=== PATIENT | female | born 1995 | race Caucasian/White ===

== ENCOUNTER 2019-10-27 04:48 | Emergency (ER) | payer MEDICAID ==
[~2019-10-27] VITALS: Ht 167.6 cm; Wt 113.4 kg
[2019-10-27] MEDS ORDERED: ACETAMINOPHEN325 M1 PO (05:02)
[2019-10-27] MEDS ORDERED: IBUPROFEN600 MG PO (05:02)
[2019-10-27] MEDS ORDERED: KEFLEX500 MG PO (06:53)
== END 2019-10-27 07:18 | disposition home or self-care (01) ==
LOC: ED 04:48
DX: O86.20 Urinary tract infection following delivery, unspecified (principal); O99.335 Smoking (tobacco) complicating the puerperium; F17.200 Nicotine dependence, unspecified, uncomplicated; Z88.0 Allergy status to penicillin
CPT/HCPCS: 76705; 80053; 81001; 83690; 85025; 99284-25; A9270

== ENCOUNTER 2021-10-06 16:14 | Emergency (ER) | payer OTHER ==
[~2021-10-06] VITALS: Ht 167.6 cm; Wt 120.5 kg
[~2021-10-06 16:14] MED LIST: ACETAMINOPHEN325 M1 PO; IBUPROFEN600 MG PO; KEFLEX500 MG PO
[2021-10-06] MEDS ORDERED: VITAMIN D310 MCG/11 PO (16:40)
[2021-10-06] MEDS ORDERED: CLEOCIN HCL300 MG PO (16:40)
--- OUTSIDE RECORDS SUMMARY | 2021-10-06 17:42 | XMS ---
PreManage Notification: OLAF THOMAS Security Nursing Program Manager Events No recent Security Events currently on file CRITERIA MET - 6 ED Visits in 6 Months - [facility] - 2 Visits in 30 Days CARE PROVIDERS MARY VEGA Advanced Practice Phys Asst Current PHONE: Unknown PCP: Ijeoma Liao Advanced Practice Phys Asst Current PHONE: Unknown ELANA HOGAN [facility] Current PHONE: Unknown Wilfredo has no Care Guidelines for this patient. E.D. VISIT COUNT (12 MO.) 4 [place] Byrne Maryjo 4 [facility]. 1 BRITTANY Bricelyn Deysi TOTAL 9 NOTE: Visits indicate total known visits. ED/UCC VISIT TRACKING (12 MO.) 10/06/2021 16:16 [facility] [place] TYPE: Emergency COMPLAINT: - CHEST HURTS WHEN BREATHES, RUNNY NOSE, COUGH 09/19/2021 02:22 [facility] [place] TYPE: Emergency DIAGNOSES: - Otalgia - Periapical abscess without sinus - Otalgia, right ear - Dental Pain 06/26/2021 14:35 [facility] [place] TYPE: Emergency DIAGNOSES: - Unspecified abdominal pain - Other specified related conditions, unspecified trimester - Abdominal Pain () [facility] COMPLAINT: - [facility] COMPLAINT: - N/V/D CP SOB 05/20/2021 04:35 [facility] [place] TYPE: Emergency DIAGNOSES: - Sore Throat - COVID-19 03/24/2021 05:46 [facility] [place] TYPE: Emergency COMPLAINT: - NAUSEA VOMITING ABD PAIN 03/23/2021 09:31 [facility] [place] TYPE: Emergency DIAGNOSES: - Emesis - Abdominal Pain - Noninfective gastroenteritis and colitis, unspecified - Blood In Stool 03/13/2021 19:33 [facility] [place] TYPE: Emergency COMPLAINT: - LT HAND INJURY INPATIENT VISIT TRACKING (12 MO.) No inpatient visits to display in this time frame [email or web address]
== END 2021-10-06 19:26 | disposition home or self-care (01) ==
LOC: ED 16:14
DX: J06.9 Acute upper respiratory infection, unspecified (principal); J98.01 Acute bronchospasm; F17.200 Nicotine dependence, unspecified, uncomplicated; Z88.0 Allergy status to penicillin; Z79.899 Other long term (current) drug therapy; Z20.822 Contact with and (suspected) exposure to COVID-19
CPT/HCPCS: 81001; 94640; 94664; 99283; C9803; J7030; U0003

== ENCOUNTER 2022-01-31 05:59 | Inpatient (IN) | payer OTHER ==
[~2022-01-31] VITALS: Ht 167.6 cm; Wt 120.0 kg
[~2022-01-31 05:59] MED LIST changes: +CLEOCIN HCL300 MG PO; +VITAMIN D310 MCG/11 PO
--- NOTE | 2022-01-31 10:11 | PR ---
[facility] [address], [place] [address] Signed Progress Notes IP Datetime Report Generated by CPN: 01/31/2022 10:11 PROGRESS NOTES: [id number] Impression: Normal Progression of Labor; Reassuring Heart Rate Procedures: Sterile Vag Exam Plan: Continue Present Management Informed Consent Obtain: Vaginal Delivery VITAL SIGNS: [id number] Vital Signs: Reviewed; Within Normal Limits EXAM: [id number] Dilatation: 6.0 Effacement: 80 Station: -2 Contractions: q 1-2 MEMBRANES: [id number] ROM Note: Attempted AROM Comments: Pt seen and examined. Doing well. Comfortable w/ epidural. SROM _ 2 hr ago. Pt reports more pelvic pressure and some N/V. Discussed anticipated course of labor / delivery. All questions answered. FETUS A: [id number] FHR Baseline: 150 Variability: Moderate 6-25bpm Accelerations: 15X15 Decelerations: None FHR Category: Category I Presentation: Vertex Comments on Fetus A: No evidence of metabolic acidosis FETUS B: [id number] Signing Physician: Bradley Sheikh DO Copies: ~ *Electronically Signed* 01/31/22 1011 BRADLEY SHEIKH DO PATIENT NAME: OLAF THOMAS PROGRESS NOTE DATE OF : 89 PHYSICIAN: BRADLEY SHEIKH DO RPT #: [id number] REPORT IS CONFIDENTIAL AND NOT TO BE RELEASED WITHOUT AUTHORIZATION
--- NOTE | 2022-02-01 09:59 | PR ---
[facility] [address] [facility] [place], [place] [address] Signed PP Progress Notes Datetime Report Generated by CPN: 02/01/2022 09:59 SUBJECTIVE: [id number] Pain: Within Normal Limits Vital Signs: [id number] Cardiovascular: Normal Abdomen/Uterus: Normal Lochia: Normal Vulva/Perineum: Normal Progress: Abnormal IMPRESSION/PLAN/PROCEDURES: [id number] Impression: Normal Progression; Difficulties Plan: Consult; Discharge Procedures: None Progress Notes: Doing well. Ready for discharge Signing Physician: Katrin Faria MD Copies: ~ *Electronically Signed* 02/01/22 0959 KATRIN FARIA MD PATIENT NAME: OLAF THOMAS PROGRESS NOTE DATE OF : 95 PHYSICIAN: KATRIN FARIA MD RPT #: [id number] REPORT IS CONFIDENTIAL AND NOT TO BE RELEASED WITHOUT AUTHORIZATION
== END 2022-02-01 14:50 | disposition home or self-care (01) | DRG 806 ==
LOC: FBC 05:59
PROVIDERS: ADMIT Obstetrics & Gynecology; ATTEND Obstetrics & Gynecology
PROC: 10E0XZZ Delivery of Products of Conception, External Approach (ICD-10-PCS; principal; 2022-01-31)
DX: O42.02 Full-term premature rupture of membranes, onset of labor within 24 hours of rupture (principal); O99.324 Drug use complicating childbirth; Z37.0 Single live birth; Z20.822 Contact with and (suspected) exposure to COVID-19; O99.334 Smoking (tobacco) complicating childbirth; F17.210 Nicotine dependence, cigarettes, uncomplicated; F12.90 Cannabis use, unspecified, uncomplicated; O13.4 Gestational [pregnancy-induced] hypertension without significant proteinuria, complicating childbirth; O99.344 Other mental disorders complicating childbirth; F32.A Depression, unspecified; F41.9 Anxiety disorder, unspecified; O99.214 Obesity complicating childbirth; Z3A.37 37 weeks gestation of pregnancy; Z88.0 Allergy status to penicillin
CPT/HCPCS: 36415; 85027; 86850; 86900; 86901; 87502; A9270; J2405; J2590; J3010; U0003

== ENCOUNTER 2022-07-31 08:52 | Emergency (ER) | payer OTHER ==
[~2022-07-31] VITALS: Ht 167.6 cm; Wt 119.8 kg
== END 2022-07-31 14:14 | disposition home or self-care (01) ==
LOC: ED 08:52
DX: S20.212A Contusion of left front wall of thorax, initial encounter (principal); Y04.8XXA Assault by other bodily force, initial encounter; F17.200 Nicotine dependence, unspecified, uncomplicated; Z88.0 Allergy status to penicillin
CPT/HCPCS: 36415; 70498; 71101; 80048; 84703; 85025; 99284-25; Q9967

== ENCOUNTER 2024-02-27 07:48 | Emergency (ER) | payer OTHER ==
[~2024-02-27] VITALS: Ht 167.6 cm; Wt 95.7 kg
[2024-02-27] MEDS ORDERED: ZITHROMAX250 MG PO (08:37)
[2024-02-27] MEDS ORDERED: DEXAMETHASONE SOD PHOS 10 MG/ML VIAL PO ONE (08:45)
[2024-02-27] MEDS ORDERED: KETOROLAC TROMETHAMINE 15 MG/ML VIAL IM ONE (08:45)
[2024-02-27] MEDS ORDERED: AZITHROMYCIN 250 MG TAB PO ONE (08:45)
[2024-02-27 09:28] VITALS: BP 128/70
== END 2024-02-27 09:29 | disposition home or self-care (01) ==
LOC: ED 07:48
DX: J02.0 Streptococcal pharyngitis (principal); F17.200 Nicotine dependence, unspecified, uncomplicated; Z88.0 Allergy status to penicillin
CPT/HCPCS: 87651; 96372; 99283-25; J1100; J1885

== ENCOUNTER 2024-10-13 08:48 | Emergency (ER) | payer OTHER ==
[~2024-10-13] VITALS: Ht 167.6 cm; Wt 112.5 kg
[~2024-10-13 08:48] MED LIST changes: +ZITHROMAX250 MG PO
[2024-10-13] MEDS ORDERED: METRONIDAZOLE500 MG PO (08:57)
[2024-10-13] MEDS ORDERED: TERCONAZOLE45 GM VAGINAL (08:57)
[2024-10-13] MEDS ORDERED: METOCLOPRAMIDE HCL 10 MG/2 ML SDV IV ONE (09:15)
[2024-10-13] MEDS ORDERED: SODIUM CHLORIDE 0.9% 1,000 ML IV ONE (09:15)
[2024-10-13] MEDS ORDERED: ACETAMINOPHEN 325 MG TAB PO ONE (09:15)
[2024-10-13] MEDS ORDERED: diphenhydrAMINE HCL 50 MG/ML VIAL IV ONE (09:15)
[2024-10-13 09:28] LABS: BASOPHILS 0.5 % (0-2); EOSINOPHILS 1.8 % (0-6); HEMATOCRIT 37.4 % (35.0-50.0); HEMOGLOBIN 13.1 g/dL (12.0-18.0); LYMPHOCYTES 14.1 % (24-44); MCV 91.4 fl (81-99); NEUTROPHILS 78.6 % (39-80); PLATELET COUNT 218 K/uL (140-440); RBC 4.09 M/ul (4.3-5.7); RDW 13.4 (10.5-15.0)
[2024-10-13 09:44] LABS: ALBUMIN 2.9 g/dL (3.4-5.0); ALBUMIN/GLOBULIN RATIO 0.73 (1.1-2.4); ANION GAP 11.8 (7-21); BILIRUBIN, TOTAL 0.3 mg/dL (0.2-1.0); BUN/CREATININE RATIO 13.46 (6.0-28.6); CALCIUM 8.7 mg/dL (8.5-10.1); CREATININE, SERUM 0.52 mg/dL (0.55-1.02); POTASSIUM 3.8 mmol/L (3.5-5.1); PROTEIN, TOTAL 6.9 g/dL (6.4-8.2)
[2024-10-13 09:58] LABS: BILIRUBIN, URINE NEGATIVE (negative); BLOOD/HGB, URINE NEGATIVE (Negative); KETONE, URINE NEGATIVE (Negative); LEUK ESTERASE, URINE NEGATIVE (negative); NITRITE, URINE NEGATIVE (negative); PH, URINE 6.5 (5-7)
[2024-10-13 11:20] VITALS: BP 124/62
== END 2024-10-13 11:20 | disposition left against medical advice (07) ==
LOC: ED 08:48
PROVIDERS: Emergency Medicine
DX: O99.891 Other specified diseases and conditions complicating pregnancy (principal); R51.9 Headache, unspecified; O10.912 Unspecified pre-existing hypertension complicating pregnancy, second trimester; O99.332 Smoking (tobacco) complicating pregnancy, second trimester; F17.200 Nicotine dependence, unspecified, uncomplicated; Z3A.19 19 weeks gestation of pregnancy; Z53.21 Procedure and treatment not carried out due to patient leaving prior to being seen by health care provider; Z88.0 Allergy status to penicillin; Z79.899 Other long term (current) drug therapy
CPT/HCPCS: 36415; 80053; 81003; 85025; 96374; 96375; 99284-25; A9270; J1200; J2765; J7030

== ENCOUNTER 2025-03-04 21:53 | Inpatient (IN) | payer OTHER ==
[~2025-03-04] VITALS: Ht 167.6 cm; Wt 117.0 kg
[~2025-03-04 21:53] MED LIST changes: +CEFAZOLIN SODIUM 1 GM/10 ML SYR IV SCH; +METRONIDAZOLE500 MG PO; +TERCONAZOLE45 GM VAGINAL
[2025-03-04] MEDS ORDERED: TERBUTALINE SULFATE 1 MG/ML AMP SUB-Q PRN (22:30)
[2025-03-04] MEDS ORDERED: CEFAZOLIN SODIUM 2 GM/20 ML SYR IV ONE (22:30)
[2025-03-04] MEDS ORDERED: LACTATED RINGER'S 1,000 ML IV PRN (22:30)
[2025-03-04] MEDS ORDERED: MAGNESIUM HYDROXIDE/AL HYDROX 30 ML CUP PO PRN (22:30)
[2025-03-04] MEDS ORDERED: OXYTOCIN 10 UNITS/ML VIAL IM SCH (22:30)
[2025-03-04] MEDS ORDERED: LACTATED RINGER'S 1,000 ML IV SCH (22:30)
[2025-03-04] MEDS ORDERED: LIDOCAINE HCL 1% 30 ML SDV INJ PRN (22:30)
[2025-03-04] MEDS ORDERED: CALCIUM CARBONATE 500 MG CHEW PO PRN (22:30)
[2025-03-04] MEDS ORDERED: SOD+POT BICARB/CITRIC ACID 2 EA TABLET.EFF ONE (22:42)
[2025-03-04 22:44] LABS: MCH 31.1 PG (25.6-32.2); MCHC 34.6 g/dL (32.2-35.5); MCV 89.9 fL (79.4-94.8); RBC 3.96 M/uL (3.93-5.22)
[2025-03-04] MEDS ORDERED: OXYTOCIN/0.9 % SODIUM CHLORIDE 30 UNITS/500 ML BAG IV SCH (22:45)
[2025-03-04 23:00] LABS: AMPHETAMINES, URINE NEGATIVE (NEGATIVE); BARBITURATES, URINE NEGATIVE (NEGATIVE); BENZODIAZEPINE, URINE NEGATIVE (NEGATIVE); CANNABINOID, URINE POSITIVE (NEGATIVE); COCAINE, URINE NEGATIVE (NEGATIVE); ECSTASY, URINE NEGATIVE (NEGATIVE); FENTANYL, URINE NEGATIVE (NEGATIVE); METHADONE, URINE NEGATIVE (NEGATIVE); OPIATES, URINE NEGATIVE (NEGATIVE); OXYCODONE, URINE NEGATIVE (NEGATIVE); PHENCYCLIDINE, URINE NEGATIVE (NEGATIVE)
[2025-03-04 23:18] LABS: ABO O; ANTIBODY SCREEN NEGATIVE; RH POSITIVE
[2025-03-04 23:56] LABS: IS CROSSMATCH COMPATIBLE
[2025-03-05] MEDS ORDERED: ePHEDrine sulfate 5 MG/ML SYRINGE IV PRN (00:30)
[2025-03-05] MEDS ORDERED: LACTATED RINGER'S 2,000 ML IV ONE (00:30)
[2025-03-05] MEDS ORDERED: LACTATED RINGER'S 500 ML IV PRN (00:30)
[2025-03-05] MEDS ORDERED: fentaNYL citrate 100 MCG/2 ML VIAL ONE (00:30)
[2025-03-05] MEDS ORDERED: ROPIVACAINE 0.2% 200 ML BAG EPIDURAL SCH (00:30)
[2025-03-05] MEDS ORDERED: ROPIVACAINE 0.2% 200 ML BAG ONE (00:30)
[2025-03-05] MEDS ORDERED: CEFAZOLIN SODIUM 1 GM/10 ML SYR IV SCH (02:00)
[2025-03-05 02:09] VITALS: BP 110/67
[2025-03-05] MEDS ORDERED: OXYTOCIN/0.9 % SODIUM CHLORIDE 500 ML IV SCH (02:30)
[2025-03-05] MEDS ORDERED: IBUPROFEN 600 MG TAB PO PRN (02:30)
[2025-03-05] MEDS ORDERED: WITCH HAZEL/GLYCERIN 1 EA PAD TOP PRN (02:30)
[2025-03-05] MEDS ORDERED: BENZOCAINE 60 ML AEROSOL TOP PRN (02:30)
[2025-03-05] MEDS ORDERED: MAGNESIUM HYDROXIDE 30 ML UDC PO PRN (02:30)
[2025-03-05] MEDS ORDERED: MAGNESIUM HYDROXIDE/AL HYDROX 30 ML CUP PO PRN (02:30)
[2025-03-05] MEDS ORDERED: CALCIUM CARBONATE 500 MG CHEW PO PRN (02:30)
[2025-03-05] MEDS ORDERED: HYDROCORTISONE ACETATE 25 MG SUPP PR PRN (02:30)
[2025-03-05] MEDS ORDERED: LIDOCAINE 2% VISCOUS 6 ML SYR TOP ONE ×2 (02:30)
[2025-03-05] MEDS ORDERED: ACETAMINOPHEN 325 MG TAB PO PRN (02:30)
[2025-03-05] MEDS ORDERED: SENNOSIDES/DOCUSATE 1 EA TAB PO SCH (09:00)
[2025-03-05 15:13] LABS: BASOPHILS 0.7 % (0.1-1.2); EOSINOPHILS 1.7 % (0.7-5.8); LYMPHOCYTES 19.9 % (19.3-51.7); MCH 30.7 PG (25.6-32.2); MCHC 34.2 g/dL (32.2-35.5); MCV 89.7 fL (79.4-94.8); MONOCYTES 8.4 % (4.7-12.5); NEUTROPHILS 68.4 % (34.0-71.1); RBC 3.88 M/uL (3.93-5.22)
[2025-03-05] MEDS ORDERED: OXYCODONE HCL 5 MG TAB PO PRN (15:15)
[2025-03-05 15:30] LABS: ALT (SGPT) 13.0 U/L (14-59); AST (SGOT) 19.0 U/L (15-37); GLOMERULAR FILTRATION RATE,EST 121.0 mL/min (>60); PROTEIN, TOTAL 6.0 g/dL (6.4-8.2); UREA NITROGEN 12.0 mg/dL (7-18)
[2025-03-05 15:44] LABS: PROTEIN, RANDOM URINE 44.0 mg/dL (NOT ESTABLISHED)
== END 2025-03-06 10:20 | disposition home or self-care (01) | DRG 807 ==
LOC: FBCO 21:53 → FBC 22:11
PROVIDERS: Advanced Practice Midwife; ADMIT Obstetrics & Gynecology; ATTEND Obstetrics & Gynecology
PROC: 00HU33Z Insertion of Infusion Device into Spinal Canal, Percutaneous Approach (ICD-10-PCS; principal; 2025-03-04)
PROC: 10E0XZZ Delivery of Products of Conception, External Approach (ICD-10-PCS; principal; 2025-03-04)
PROC: 3E0R3BZ Introduction of Anesthetic Agent into Spinal Canal, Percutaneous Approach (ICD-10-PCS; principal; 2025-03-04)
DX: O99.824 Streptococcus B carrier state complicating childbirth (principal); Z37.0 Single live birth; O99.324 Drug use complicating childbirth; O99.334 Smoking (tobacco) complicating childbirth; O99.214 Obesity complicating childbirth; F17.200 Nicotine dependence, unspecified, uncomplicated; F12.90 Cannabis use, unspecified, uncomplicated; Z3A.38 38 weeks gestation of pregnancy; Z88.0 Allergy status to penicillin
CPT/HCPCS: 36415; 80053; 80307; 82570; 84156; 85025; 85027; 86850; 86900; 86901; 86922; A9270; J0690; J7121